=== PATIENT | male | born 1980 | race Caucasian/White ===

== ENCOUNTER 2024-01-06 19:18 | Emergency (ER) | payer OTHER, SELFPAY ==
[2024-01-06 19:22] VITALS: BP 121/78; PULSE 78; RESP 18; TEMP 36.7; O2SAT 99; BMI 21.9
--- NOTE | 2024-01-06 19:40 | ED.EYEPROB ---
HPI - Eye Problem General Chief complaint: Eye Problems Stated complaint: Got something in left eye Time Seen by Provider: 01/06/24 19:28 History of Present Illness HPI Narrative: This 43-year-old male comes in with pain and excessive tearing from his left eye. He was at his son's baseball game and thinks that he got something into his eye. He does not feel like there is anything currently yet remaining in his eye but continues to have discomfort. Related Data Home Medications ?Medication ?Instructions ?Recorded ?Confirmed No Known Home Medications 01/06/24 01/06/24 Allergies Allergy/AdvReac Type Severity Reaction Status Date / Time No Known Drug Allergies Allergy Verified 01/06/24 19:24 Review of Systems Status of ROS: Reports: 10 or more systems reviewed and unremarkable except as noted in History and below Narrative: Constitutional: No fevers, no weight gain or loss. Eyes: Left eye pain with tearing. HENT: No congestion, no sore throat, no ear pain. Cardiovascular: No chest pain, no palpitations. Respiratory: No shortness of breath, no wheezes, no cough. Gastrointestinal: No abdominal pain, no vomiting, no diarrhea. Genitourinary: No dysuria, no hematuria. Musculoskeletal: Normal range of motion. Skin: No rashes, no pruritis. Neurological: No dizziness, weakness, sensory change, speech change. Endo/Heme/Allergies: No bruising or bleeding. No polydipsia. Pysch: no suicidality, no anxiety, no insomnia. All other systems reviewed and are negative. [facility] Medical History (Updated 01/06/24 @ 19:43 by Burton Baez MD) No significant past medical history Surgical History (Updated 01/06/24 @ 19:41 by Juno Boland RN) No significant past surgical history Exam Narrative: Exam Narrative: Constitutional: Well-developed, well-nourished, no acute distress. HEENT: Left eye has excessive tearing. There is no obvious erythema. I examined the eye under magnification and saw evidence of a corneal abrasion. There is no residual material or foreign object identified. Neck: Normal range of motion. Nontender. Supple. Heart: Intact distal pulses. Lungs: No chest discomfort. No wheezes, rhonchi, or rales. Abdomen: Nontender. Back: Normal range of motion. Extremities: Normal range of motion. No injury. Skin: Intact. No rash. Warm. No erythema or pallor. Neurologic: No altered sensation. No weakness. Alert and oriented. Psychiatric: No suicidality. No anxiety or depression. No insomnia. Nursing notes and vitals signs are reviewed. Const: Vital Signs, click to edit/add: Vital Signs - 24 hr 01/06/24 19:22 Temperature 98.1 F Pulse Rate [Right Pulse Oximeter] 78 Respiratory Rate 18 Blood Pressure [Ri ght Upper Arm] 121/78 Pulse Oximetry 99 Oxygen Delivery Me thod Room Air Course Vital Signs Vital signs: Initial Vital Signs Temperature 98.1 F 01/06/24 19:22 Temperature Source Temporal Artery Scan 01/06/24 19:22 Pulse Rate 78 01/06/24 19:22 Respiratory Rate 18 01/06/24 19:22 Blood Pressure 121/78 01/06/24 19:22 Blood Pressure Mean 92 01/06/24 19:22 Blood Pressure Position Sitting 01/06/24 19:22 Pulse Oximetry 99 01/06/24 19:22 Oxygen Delivery Method Room Air 01/06/24 19:22 Vital Signs Temperature 98.1 F 01/06/24 19:22 Pulse Rate 78 01/06/24 19:22 Respiratory Rate 18 01/06/24 19:22 Blood Pressure 121/78 01/06/24 19:22 Pulse Oximetry 99 01/06/24 19:22 Oxygen Delivery Method Room Air 01/06/24 19:22 Temperature 98.1 F 01/06/24 19:22 Pulse Rate 78 01/06/24 19:22 Respiratory Rate 18 01/06/24 19:22 Blood Pressure 121/78 01/06/24 19:22 Pulse Oximetry 99 01/06/24 19:22 Oxygen Delivery Method Room Air 01/06/24 19:22 MDM - Eye Problem MDM Narrative Medical decision making narrative: This patient received tetracaine for anesthesia in order to more adequately examine his eye which was done under magnification. I could see evidence of a corneal abrasion without using fluorescein dye. There was no sign of any foreign object. The patient did receive flurbiprofen ophthalmic solution for symptomatic relief. I advised him to avoid rubbing. Discharge Plan Discharge Clinical Impression: Corneal abrasion Patient Disposition: Home, Self-Care Condition: Stable Additional Instructions: Use medication as needed and directed. Follow up with MD return if worsening. Prescriptions: No Action No Known Home Medications Stand Alone Forms: [employer] Info Instructions
[2024-01-06 19:48] VITALS: BP 118/74; PULSE 71; RESP 18; TEMP 36.7; O2SAT 99
[2024-01-06 20:15] VITALS: BP 118/74; PULSE 71; RESP 18; TEMP 36.7
== END 2024-01-06 20:16 | disposition home or self-care (01) ==
PROVIDERS: Emergency Provider Emergency Medicine Emergency Medical Services
DX: S05.02XA Injury of conjunctiva and corneal abrasion without foreign body, left eye, initial encounter (principal); X58.XXXA Exposure to other specified factors, initial encounter; Y93.64 Activity, baseball
CPT/HCPCS: 99283; 99284; A9270